=== PATIENT | female | born 1990 | race Caucasian/White ===

== ENCOUNTER 2025-03-31 18:30 | Inpatient (IN) | payer OTHER, SELFPAY ==
[2025-03-31] VITALS (8 sets, daily range): BP systolic 136–154; BP diastolic 76–91; PULSE 88–102; RESP 16–17; TEMP 36.4–36.5; O2SAT 97–98; BMI 41.1; BMI 1939.0; BMI 20251125.0
[2025-03-31 18:53] LABS: Creatinine, Urine (random) 74.80 mg/dL (28.00-217.00); Protein, Urine (Random) 13.1 mg/dL (0.0-12.0); Protein:Creat Ratio 175 mg/g CRE (0-200)
[2025-03-31 18:55] LABS: AST(SGOT) 19 U/L (<=31); Alanine Aminotransfer ALT/SGPT 11 U/L (<=34); Estimated Creatinine Clearance 99.03 ml/min (50-250); Hematocrit 39.2 % (37-47); Hemoglobin 12.5 g/dL (12.0-15.0); Mean Corp Hgb Conc 31.9 g/dL (32-36); Mean Corpuscular Volume 85.6 fL (81-99); Mean Platelet Vol. 12.0 fl (6.2-12.0); Platelet Count 267 K/mm3 (150-450); RBC Distribution Width CV 17.2 % (11.6-14.6); RBC Distribution Width SD 53.5 fl (35.1-43.9); Red Blood Count 4.58 M/mm3 (4.2-5.4); White Blood Count 15.9 K/mm3 (4.4-11.0)
[2025-03-31 19:52] LABS: Syphilis Antibodies Nonreactive (Nonreactive)
[2025-03-31 19:56] LABS: Uric Acid 5.3 mg/dL (2.6-6.0)
[2025-04-01] VITALS (47 sets, daily range): BP systolic 114–162; BP diastolic 55–93; PULSE 73–111; RESP 16–18; TEMP 36.2–37.4; O2SAT 78–100; BMI 1030.0; BMI 20251126.0
[2025-04-01] MEDS: LACTATED RINGERS 500 ML 999 ML IV ×2 (00:27→04:47)
--- NOTE | 2025-04-01 07:47 | PCM.HP.OB ---
HPI - General General Date of Admission: 03/31/25 HPI Narrative CORDELL GREER, is a 34 F who presents for induction of labor for GHTN, GDM, and Obesity. Maternal Data Information IRA Calculator Estimated Delivery Date Method Current WG Current Estimate 04/16/25 Manual 37w 6d PFSH PFS Medical History (Updated 04/01/25 @ 07:50 by Jocelin Rob CNM) Asthma Anxiety Headache Gestational diabetes Pre-eclampsia Home Medications ?Medication ?Instructions ?Recorded ?Last Taken ?Type albuterol 90 mcg-budesonide 80 2 inh inhalation PRN PRN shortness 03/31/25 Unknown History mcg/actuation HFA aerosol inhaler of breath or wheezing (Airsupra) aspirin 81 mg tablet 81 mg PO DAILY 03/31/25 03/31/25 History budesonide 32 mcg/actuation nasal 1 spray intranasal PRN 03/31/25 Unknown History spray cetirizine 10 mg tablet (24Hour 10 mg PO .HS PRN allergy 03/31/25 03/30/25 History Allergy) epinephrine 0.3 mg/0.3 mL 0.3 mg IM PRN PRN anaphylaxis 03/31/25 Unknown History injection, auto-injector (EpiPen) fexofenadine 180 mg tablet 180 mg PO .AM 03/31/25 03/31/25 History (Rehana Allergy) fluticasone 250 mcg-salmeterol 50 1 inh inhalation BID 03/31/25 03/31/25 History mcg/dose blistr powdr for inhalation (Advair Diskus) montelukast 10 mg tablet 10 mg PO .HS allergies 03/31/25 03/30/25 History (Singulair) vit no.95-ferrous 1 tab PO DAILY 03/31/25 03/31/25 History fumarate 28 mg-folic acid 800 mcg tablet () Allergy/AdvReac Type Severity Reaction Status Date / Time peanut Allergy Severe Anaphylaxis Verified 03/31/25 17:36 tree nut Allergy Severe Anaphylaxis Verified 03/31/25 17:36 egg (eggs) Allergy Mild Hives Verified 03/31/25 17:36 shellfish derived Allergy Mild Hives Verified 03/31/25 17:36 Surgical History (Updated 03/31/25 @ 18:54 by Paul Castaneda) History of surgery Social History Smoking Status: Never smoker History Elective abortions Hx Para 0 Spontaneous abortions Hx # Term Pregnancies Ectopic pregnancies Hx # Pregnancies Multiple births # of living children NST FHR Rate Baby A Baseline: 140 Variability:: Moderate Accelerations:: 15 x 15 Decelerations:: None NST Reactive:: Yes FHR Category:: Category I Uterine Activity:: TOCO reading every 2-3 minutes ROS Eyes Eyes: Denies blurry vision, change in vision or spots in vision ENT HEENT: Denies dizziness or headache(s) Cardiovascular Cardiovascular: Denies abdominal pain, chest pain or dyspnea Respiratory/Chest Respiratory/Chest: Denies cough, dyspnea, shortness of breath at rest or shortness of breath with exertion Gastrointestinal Gastrointestinal: Denies abdominal pain, diarrhea or vomiting Genitourinary Genitourinary: Denies change in urinary stream, difficulty urinating or dysuria Musculoskeletal Musculoskeletal: Reports none Integumentary Integumentary: Denies rash Neurologic Neurologic: Denies dizziness, headache(s), memory loss or weakness Psychiatric Psychiatric: Reports none Vital Signs Vital Signs Vital Signs: 03/31/25 17:49 03/31/25 17:52 03/31/25 17:52 Temperature Temperature Source Pulse Rate 100 Respiratory Rate 17 Blood Pressure 137/77 H BP Systolic 137 BP Diastolic 77 Pulse Ox 03/31/25 17:52 03/31/25 17:52 03/31/25 17:52 Temperature 97.7 F L Temperature Source Temporal Pulse Rate Respiratory Rate Blood Pressure BP Systolic BP Diastolic Pulse Ox 97 03/31/25 18:07 03/31/25 18:07 03/31/25 18:22 Temperature Temperature Source Pulse Rate 91 Respiratory Rate Blood Pressure 147/87 H 154/91 H BP Systolic 147 154 BP Diastolic 87 91 Pulse Ox 03/31/25 18:22 03/31/25 18:37 03/31/25 18:37 Temperature Temperature Source Pulse Rate 99 99 Respiratory Rate Blood Pressure 152/79 H BP Systolic 152 BP Diastolic 79 Pulse Ox 03/31/25 18:53 03/31/25 18:53 03/31/25 19:07 Temperature Temperature Source Pulse Rate 95 Respiratory Rate Blood Pressure 139/87 H 136/88 H BP Systolic 139 136 BP Diastolic 87 88 Pulse Ox 03/31/25 19:07 03/31/25 20:14 03/31/25 20:14 Temperature Temperature Source Pulse Rate 102 H 88 Respiratory Rate Blood Pressure 142/76 H BP Systolic 142 BP Diastolic 76 Pulse Ox 03/31/25 20:14 03/31/25 20:14 03/31/25 20:14 Temperature 97.5 F L Temperature Source Pulse Rate 95 Respiratory Rate Blood Pressure BP Systolic BP Diastolic Pulse Ox 98 03/31/25 20:14 04/01/25 00:01 04/01/25 00:01 Temperature 99.0 F Temperature Source Pulse Rate Respiratory Rate 16 Blood Pressure 139/83 H BP Systolic 139 BP Diastolic 83 Pulse Ox 04/01/25 00:01 04/01/25 00:02 04/01/25 00:02 Temperature Temperature Source Pulse Rate 81 84 Respiratory Rate Blood Pressure BP Systolic BP Diastolic Pulse Ox 97 04/01/25 03:53 04/01/25 03:53 04/01/25 03:53 Temperature 99.3 F H Temperature Source Pulse Rate 84 Respiratory Rate Blood Pressure BP Systolic BP Diastolic Pulse Ox 94 04/01/25 03:54 04/01/25 03:54 04/01/25 03:55 Temperature Temperature Source Pulse Rate 73 Respiratory Rate Blood Pressure 142/89 H BP Systolic 142 BP Diastolic 89 Pulse Ox 98 04/01/25 07:22 04/01/25 07:22 04/01/25 07:22 Temperature 98.4 F Temperature Source Pulse Rate 78 Respiratory Rate Blood Pressure 114/55 L BP Systolic 114 BP Diastolic 55 Pulse Ox 04/01/25 07:25 04/01/25 07:25 04/01/25 07:27 Temperature Temperature Source Temporal Pulse Rate Respiratory Rate 16 Blood Pressure BP Systolic BP Diastolic Pulse Ox 97 Weight Weight: 225 lb Body Mass Index (BMI) 41.1 PRE- weight 195 lb PRE- Body Mass Index 35.9 (BMI) Physical Exam Const alert, oriented x3 and no apparent distress General Appearance: cooperative Orientation / Consciousness: awake Exam Limitations: no limitations HEENT normocephalic Head and Scalp: normal to inspection Eyes General Eye: normal appearance of both eyes Neck full ROM and no lymphadenopathy Lymph Lymphatic: no lymphadenopathy noted Chest inspection of chest normal Resp normal respiratory effort, normal air movement and clear to auscultation bilaterally Effort and Inspection: able to speak in complete sentences and symmetric chest movement Cardio regular rate and regular rhythm GI normal to inspection, nondistended, normoactive bowel sounds Manual OB Exam: presentation cephalic Back/Spine normal ROM Extremity full ROM and no calf tenderness Skin no rashes or lesions noted General Skin Exam: no breakdown Neuro oriented x3 and CN's II-XII intact bilaterally Psych mental status grossly normal and thought process normal Labs Labs Labs: Blood Type A NEGATIVE Antibody Screen NEGATIVE Hct, (37-47) 39.2 % Hgb, (12.0-15.0) 12.5 g/dL Syphilis Total Ab, (Nonreactive) Nonreactive GBS NEG Assessment & Plan (1) Encounter for induction of labor: (2) Asthma: (3) Anxiety: (4) Gestational diabetes: (5) Obesity affecting : (6) Rh negative status during : (7) AMA (advanced maternal age) primigravida 35+: (8) Excessive growth affecting management of mother: (9) 37 weeks gestation of : (10) Gestational hypertension: PLAN: Plan Admit to labor and delivery HTN protocol GDM protocol CE 1.5/50/-3 West bulb placed without difficulty and filled with 30 cc N/S AROM for clear fluid during placement of west bulb GBS NEG Epidural when indicated Only received 1 dose of Cytotec due to tachysystole Dr. Ziegler notified and is collaborating physician
[2025-04-01] MEDS: 0.9% Normal Saline Single 100 ML IV.SOLN. INTRA-UTER (08:03)
[2025-04-01] MEDS: 0.9% Saline Lock 10 ML Syringe IV (09:09)
[2025-04-01] MEDS: Lactated Ringers 1,000 ML 999 ML IV (09:10)
[2025-04-01] MEDS: fentaNYL-bupivacaine (epidural) 100 ML BAG EPIDURAL ×3 (09:53→19:04)
[2025-04-01] MEDS: Lactated Ringers 1,000 ML 100 ML IV ×2 (10:12→22:14)
[2025-04-01] MEDS: Fluticasone Propion/Salmeterol 250-50 Inhaler 1 PUFF INHALATION ×2 (11:00→22:43)
[2025-04-01] MEDS: Oxytocin 15 Units/NS 250ml 15 UNITS/250 ML IV.SOLN 2 UNITS IV (11:24)
[2025-04-01] MEDS: Lactated Ringers 1,000 ML 200 ML IV (16:20)
--- NOTE | 2025-04-01 16:43 | PN.OBGYN_ITS ---
Subjective Subjective Patient seen at bedside. Resting comfortable with epidural. Denies any pain. Objective Data Objective Data Vital Signs: Vital Signs Temp Pulse Resp BP Pulse Ox 97.9 F 86 16 124/68 H 100 04/01/25 16:22 04/01/25 16:22 04/01/25 16:22 04/01/25 16:22 04/01/25 15:34 Weight: 225 lb Body Mass Index (BMI) 41.1 Intake & Output: Intake and Output for Last 24 Hours 03/30/25 03/31/25 04/01/25 23:59 23:59 23:59 Intake Total 2981.31 / 2981.31 Output Total 1350 / 1350 Balance 1631.31 / 1631.31 Lab / Micro Data 03/31/25 18:00 03/31/25 18:00 Labs: Laboratory Results - last 24 hr 03/31/25 18:00: WBC 15.9 H, RBC 4.58, Hgb 12.5, Hct 39.2, MCV 85.6, MCH 27.3, M CHC 31.9 L, RDW Std Deviation 53.5 H, RDW Coeff of Wilda 17.2 H, Plt Count 267, MPV 12.0, Creatinine 0.87, Estim Creat Clear Calc 99.03, Est GFR (MDRD) Non-Af 89, Uric Acid 5.3, AST 19, ALT 11, U Random Total Protein 13.1 H, Urine Creatinine 74.80, Protein/Creatinin Ratio 175 03/31/25 18:50: Syphilis Total Ab Nonreactive, Blood Type A NEGATIVE, Antibody Screen NEGATIVE 03/31/25 18:56: POC Glucose 103 03/31/25 20:07: POC Glucose 110 H 03/31/25 23:59: POC Glucose 86 04/01/25 04:09: POC Glucose 84 04/01/25 07:29: POC Glucose 100 04/01/25 11:06: POC Glucose 110 H 04/01/25 14:43: POC Glucose 73 L Assessment & Plan (1) Gestational hypertension: (2) 37 weeks gestation of : (3) Excessive growth affecting management of mother: (4) AMA (advanced maternal age) primigravida 35+: (5) Rh negative status during : (6) Obesity affecting : (7) Asthma: (8) Anxiety: (9) Gestational diabetes: (10) Encounter for induction of labor: PLAN: Plan CE /-2 - very posterior FSE and IUPC placed by nursing Pitocin at 6 mu/min- Cat. 1 tracing currently BP stable- no severe range pressures Dr. Ziegler notified and updated on A&P
--- NOTE | 2025-04-01 20:09 | PCM.PN.CNM ---
Subjective Subjective Seen at bedside. Comfortable with epidural. Sleeping on and off. Objective Data Objective Data Vital Signs: Vital Signs Temp Pulse Resp BP Pulse Ox 98.8 F 95 18 136/75 H 100 04/01/25 20:04 04/01/25 20:04 04/01/25 19:30 04/01/25 20:04 04/01/25 20:04 Weight: 225 lb Body Mass Index (BMI) 41.1 Intake & Output: Intake and Output for Last 24 Hours 03/30/25 03/31/25 04/01/25 23:59 23:59 23:59 Intake Total 3701.31 / 3701.31 Output Total 1350 / 1350 Balance 2351.31 / 2351.31 Lab / Micro Data 03/31/25 18:00 03/31/25 18:00 Labs: Laboratory Results - last 24 hr 03/31/25 18:50: Blood Type A NEGATIVE, Antibody Screen NEGATIVE 03/31/25 20:07: POC Glucose 110 H 03/31/25 23:59: POC Glucose 86 04/01/25 04:09: POC Glucose 84 04/01/25 07:29: POC Glucose 100 04/01/25 11:06: POC Glucose 110 H 04/01/25 14:43: POC Glucose 73 L 04/01/25 18:32: POC Glucose 85 Assessment & Plan (1) Gestational hypertension: (2) 37 weeks gestation of : (3) Excessive growth affecting management of mother: (4) AMA (advanced maternal age) primigravida 35+: (5) Rh negative status during : (6) Obesity affecting : (7) Asthma: (8) Anxiety: (9) Gestational diabetes: (10) Encounter for induction of labor: PLAN: Plan Cat 2 tracing with variables at times CE 6/70/-2 remains posterior- mild caput BP- 162/86 - decreased to 156/71 with retake Pitocin remains at 6 mu/min - Contractions every [address] Ziegler updated on A&P Continue present plan of care
[2025-04-02] VITALS (31 sets, daily range): BP systolic 119–141; BP diastolic 67–97; PULSE 67–99; RESP 16–18; TEMP 36.4–37.6; O2SAT 94–100; BMI 20251127.0; BMI 307.0
[2025-04-02] MEDS: fentaNYL-bupivacaine (epidural) 100 ML BAG EPIDURAL (00:13)
[2025-04-02] MEDS: Azithromycin 500 MG Vial (SNAP) IV (04:09)
[2025-04-02] MEDS: Cefazolin 1 GM/5 ML Vial 2 GM IV (04:09)
[2025-04-02] MEDS: TRANEXAMIC ACID 1,000 MG/10 ML ML 1000 MG IV (04:23)
[2025-04-02] MEDS: morphine PF (epidural) 5 MG/10 ML Vial 4 MG IV (04:28)
[2025-04-02] MEDS: Ketorolac 30 MG/ML Syringe IV ×4 (04:33→22:54)
[2025-04-02] MEDS: Midazolam 2 MG/2 ML Syringe IV (04:36)
--- NOTE | 2025-04-02 05:03 | EX.PCM.OBRPT ---
Maternal Data Information IRA Calculator Estimated Delivery Date Method Current WG Current Estimate 04/16/25 Manual 38w 0d Final IRA: 03/17/25 Gestational age: 38 0/7 CNM who managed labor up until delivery: Jocelin Rob Operative Report (OB) Procedure Details Date of Procedure: 04/02/25 Procedure Start Time: 04:14 Procedure Stop Time: 05:10 Time of Delivery: 04:18 Pre-Operative Diagnosis: Other Other Pre-Operative diagnosis: arrest of descent Post-Operative Diagnosis: Same as Pre-operative diagnosis Classification: SIENNA Type of Anesthesia: Epidural Special Medications: duramorph Antibiotic Given: Ancef 2 grams IV x1 and Zithromax 500 mg/5 mL X1 Drain: Pulido to straight drain Estimated Blood Loss: 800 Fluids Replaced: 800 Findings Description of surgery: I assessed the patient she had been complaining pushing for almost 3 hours. Nursing reported patient had not made significant descent in the last half hour. I assessed the patient and station was plus 2 out of 5 with moderate caput. After another 30 minutes of adequate pushing still plus 2 out of 5 with worsening caput significant labial edema. Her epidural was adequate. I discussed with the patient options of continue to push versus section. I discussed with her that position and station were not adequate for me to recommend a trial of instrumental assisted delivery. Patient and her partner desire to proceed with section. The patient was taken to the operating room. She was prepped and draped in the dorsal supine position. A Pfannenstiel skin incision was made approximately 2 cm above the symphysis pubis and carried through to underlying layer fascia with the scalpel. The fascia was incised incised in the midline and extended laterally with the Salvador scissors. The fascia was dissected off the rectus muscles with blunt and sharp dissection. The rectus muscles were in the midline and the peritoneum was entered [bluntly]. The peritoneal incision was stretched and the bladder blade was placed. The uterine incision was made in a low transverse fashion with the scalpel and extended superiorly and inferiorly with blunt dissection. A red catheter was placed down through the incision into the vagina. Placement hand down under the head and broke the suction easily. The 's head was brought to the incision in the flexed position and delivered without difficulty. The remainder of the was delivered with gentle traction and fundal pressure in the standard fashion. The mouth and nares were bulb suctioned. The cord was clamped and cut as the infant was stimulated. Cord clamping was not delayed as the was crying but not immediately vigorously crying. The infant was handed off to the waiting nursing staff. The placenta was delivered with fundal massage and gentle traction in the standard fashion. The uterus was exteriorized and cleared of all clots and debris. Bilateral cervical extensions of the uterine incision were oversewn with 0 Vicryl suture and were hemostatic. The uterine incision was closed with #1 Vicryl in a running locked fashion. [A second layer of the same suture was used in an imbricating fashion.] The incision was examined and was found to be hemostatic. The uterus was placed back into the peritoneal cavity and hemostasis was again confirmed. Hemoblast was placed over the uterine incision prophylactically. The rectus muscles were examined and any bleeding was Bovie cauterized. [The parietal peritoneum and rectus muscles were closed en bloc with an 0 Vicryl running suture]. The surgical teams outer gloves were then changed. The rectus fascia was examined and any bleeding was Bovie cauterized and the rectus fascia was closed with #1 PDS suture in a running standard fashion. Hemoblast was placed over every layer. The subcutaneous tissue was examining and any bleeding was Bovie cauterized. [The subcutaneous tissue was reapproximated with 3-0 Vicryl suture.] The skin was closed in a subcuticular fashion with Monocryl suture in a subcuticular fashion. I performed the entire procedure with assistance. All sponge, lap, and needle counts were correct. The patient was taken to her room for recovery in a stable condition. Surgical findings: Vigorous male Presentation: Vertex Amniotic Membrane Rupture Type: Artificial Amniotic Fluid Description: Clear Placental Delivery Description: Expressed Placenta Disposition: Sent to Pathology Specimen collected: Yes Description of specimen(s) removed: placenta Cord Vessel Description: 3 Vessels Cord Gases: ABG and VBG A gender: Male (Berthold) (1 minute): 8 (5 minute): 9 Delayed Cord Clamping: No Marketing And Outreach Coordinator marketing and outreach coordinator: Yes Sharepoint Web Developer: Stanella,Medina Tasks completed by first assistant manager: Altering tissue and Retracting Additional automotive parts counter assistant?: No Complications Complications: No Admit VTE Documentation VTE Present on Admission: No VTE Mechan Device Prophylaxis: SCD's VTE Pharm Prophylaxis Ordered: Yes
[2025-04-02] MEDS: Oxytocin 15 Units/NS 250ml 15 UNITS/250 ML IV.SOLN 83 UNITS IV (05:15)
--- NOTE | 2025-04-02 06:15 | PLAC_PTH ---
PATIENT: CORDELL GREER LOC: [facility] U#:[id number] AGE/SX: 34/F ROOM: [facility] RE03/31/[address]: Dr. Lucila Razo, MDDOB: 1990 BED: 1 DIS: 04/05/2025 SPEC #: [id number] RECD: 04/02/25 06:42 STATUS: MARC ORALIA #: [id number] JALEN: 04/02/25 06:[address]: Lucila Razo DEPT: SURGICAL PATHOLOGY RECD BY: Santana Villagomez ENTERED: 04/03/25 10:27 SP TYPE: PLACENTA OTHR DR: Dr. Reji Saenz, II, DO Tissues: A - Placenta, NOS Procedures: Surgery Specimen Level V HEADER OPERATION: Primary section PRE-OP DIAGNOSIS: Gestational hypertension TISSUE SUBMITTED: A- Placenta MICROSCOPIC DIAGNOSIS A. Abrams placenta, 3rd trimester gestation (37 weeks / 6 days), section: - 558.4 grams (50th-75th percentile). - Acute chorioamnionitis. - Three vessel umbilical cord with acute phlebitis and acute funisitis. MICROSCOPIC DESCRIPTION Slides are reviewed. GROSS DESCRIPTION A. Received in formalin labeled with the patient's name and date of is a 558.4 g, 19.1 x 18.4 x 3.4 cm irregular placental disc. The membranes are sood-pink and translucent, inserting marginally. The attached trivascular umbilical cord has multiple false knots and is possibly compressed, measuring 56.1 cm in length by 1.0-2.4 cm in diameter and inserts eccentrically, 4.5 cm from the disc edge. The surface is purple-blue with focal subchorionic fibrin, predominantly near the periphery (<15%). The maternal surface is red-brown with a focally torn and frayed appearance, patchy, loosely adherent blood clot and focal fibrin (<15%); the maternal surface appears near complete. Sectioning reveals red-brown, spongy parenchyma with focal hemorrhage and fibrin (<15%). Metals Analyst sections are submitted as follows: A1: Membrane rollA2: Umbilical cordA3: PlacentaA4: Placenta SC 04/03/2025 CPT:61404
[2025-04-02 06:46] LABS: Pathology Specimen OB SEE PATHOLOGY REPORT
[2025-04-02] MEDS: Senna/Docusate Sodium 1 Tablet PO (08:32)
[2025-04-02] MEDS: Lactated Ringers 1,000 ML 100 ML IV (09:41)
[2025-04-02] MEDS: 0.9% Saline Lock 10 ML Syringe IV ×3 (10:59→22:54)
--- NOTE | 2025-04-02 12:56 | NURSING ---
Delayed due to patient sleeping
[2025-04-03 01:53] VITALS: RESP 16; O2SAT 94
[2025-04-03 04:38] VITALS: BP 146/81; PULSE 89; RESP 16; TEMP 36.6; O2SAT 96
[2025-04-03] MEDS: Ketorolac 30 MG/ML Syringe IV (05:09)
[2025-04-03] MEDS: 0.9% Saline Lock 10 ML Syringe IV (05:09)
[2025-04-03 05:39] LABS: Hematocrit 30.1 % (37-47); Hemoglobin 9.5 g/dL (12.0-15.0); Mean Corp Hgb Conc 31.6 g/dL (32-36); Mean Corpuscular Volume 86.2 fL (81-99); Mean Platelet Vol. 10.4 fl (6.2-12.0); Platelet Count 190 K/mm3 (150-450); RBC Distribution Width CV 17.7 % (11.6-14.6); RBC Distribution Width SD 55.2 fl (35.1-43.9); Red Blood Count 3.49 M/mm3 (4.2-5.4); White Blood Count 18.5 K/mm3 (4.4-11.0)
[2025-04-03 08:24] VITALS: BP 125/81; PULSE 72; RESP 16; TEMP 36.8; O2SAT 95
--- NOTE | 2025-04-03 09:04 | PCM.PN.OB ---
Subjective Subjective Doing well. Ambulating and voiding without difficulty. Mild lochia. Breast feeding. Objective Data Objective Data Vital Signs: Vital Signs Temp Pulse Resp BP Pulse Ox O2 Del Method 98.3 F 72 16 125/81 H 95 Room Air 04/03/25 08:24 04/03/25 08:24 04/03/25 08:24 04/03/25 08:24 04/03/25 08:24 04/03/25 08:24 Oxygen Delivery Method Room Air Weight: 102.058 kg Body Mass Index (BMI) 41.1 Intake & Output: Intake and Output for Last 24 Hours 04/01/25 04/02/25 04/03/25 23:59 23:59 23:59 Intake Total 3931.31 / 3931.31 1846.30 / 1846.30 Output Total 2200 / 2200 2950 / 2950 450 / 450 Balance 1731.31 / 1731.31 -1103.70 / -1103.70 -450 / -450 Lab / Micro Data 04/03/25 05:25 03/31/25 18:00 Labs: Laboratory Results - last 24 hr 04/03/25 05:23: POC Glucose 96 04/03/25 05:25: WBC 18.5 H, RBC 3.49 L, Hgb 9.5 L, Hct 30.1 L, MCV 86.2, MCH 27.2, MCHC 31.6 L, RDW Std Deviation 55.2 H, RDW Coeff of Wilda 17.7 H, Plt Count 190, MPV 10.4 ROS Constitutional Constitutional: Denies headache(s) Cardiovascular Cardiovascular: Denies chest pain or dyspnea Gastrointestinal Gastrointestinal: Denies nausea or vomiting Genitourinary Genitourinary: Denies dysuria Physical Exam Const alert General Appearance: cooperative Eyes PERRL and EOMs intact bilaterally Resp normal respiratory effort GI soft to palpation and non-tender GI Narrative: soft, moderate distention, fundus firm, appropriately tender. Abdominal bandage clean dry and intact Uterus Palpation: uterus fundus firm ( below umbilicus) Extremity normal to inspection and full ROM Neuro oriented x3 and CN's II-XII intact bilaterally Psych mental status grossly normal Assessment & Plan (1) Gestational hypertension: (2) S/P : PLAN: Plan Routine
[2025-04-03] MEDS: Senna/Docusate Sodium 1 Tablet PO (10:08)
[2025-04-03] MEDS: Fluticasone Propion/Salmeterol 250-50 Inhaler 1 PUFF INHALATION (10:08)
[2025-04-03 13:42] VITALS: BP 131/72; PULSE 82; RESP 16; TEMP 36.6; O2SAT 97
[2025-04-03 20:29] VITALS: BP 139/87; PULSE 80; RESP 16; TEMP 36.6; O2SAT 97
[2025-04-04 02:26] VITALS: BP 139/89; PULSE 72; RESP 16; TEMP 37; O2SAT 97
--- NOTE | 2025-04-04 08:35 | PCM.PN.OB ---
Subjective Subjective Doing well. Ambulating and voiding without difficulty. Mild lochia. Breast feeding. Objective Data Objective Data Vital Signs: Vital Signs Temp Pulse Resp BP Pulse Ox O2 Del Method 98.6 F 72 16 139/89 H 97 Room Air 04/04/25 02:26 04/04/25 02:26 04/04/25 02:26 04/04/25 02:26 04/04/25 02:26 04/04/25 02:26 Oxygen Delivery Method Room Air Weight: 102.058 kg Body Mass Index (BMI) 41.1 Intake & Output: Intake and Output for Last 24 Hours 04/02/25 04/03/25 04/04/25 23:59 23:59 23:59 Intake Total 1846.30 / 1846.30 Output Total 2950 / 2950 450 / 450 Balance -1103.70 / -1103.70 -450 / -450 Lab / Micro Data 04/03/25 05:25 03/31/25 18:00 ROS Constitutional Constitutional: Denies headache(s) Cardiovascular Cardiovascular: Denies chest pain or dyspnea Gastrointestinal Gastrointestinal: Denies nausea or vomiting Genitourinary Genitourinary: Denies dysuria Physical Exam Const alert, oriented x3 and no apparent distress General Appearance: cooperative and comfortable Eyes PERRL and EOMs intact bilaterally Resp normal respiratory effort GI soft to palpation and non-tender GI Narrative: soft, moderate distention, fundus firm, appropriately tender. Abdominal bandage clean dry and intact Uterus Palpation: uterus fundus firm ( below umbilicus) Extremity normal to inspection and full ROM Neuro oriented x3 and CN's II-XII intact bilaterally Psych mental status grossly normal Assessment & Plan (1) S/P : (2) Gestational hypertension: QUALIFIERS: Trimester: third trimester Qualified Code(s): O13.3 - Gestational [-induced] hypertension without significant proteinuria, third trimester PLAN: Plan Anticipate discharge tomorrow
[2025-04-04 10:00] VITALS: BP 143/95; PULSE 80; RESP 16; TEMP 36.9; O2SAT 100
[2025-04-04] MEDS: Senna/Docusate Sodium 1 Tablet PO (10:06)
[2025-04-04] MEDS: Fluticasone Propion/Salmeterol 250-50 Inhaler 1 PUFF INHALATION ×2 (10:07→22:12)
[2025-04-04 14:23] VITALS: BP 149/90; PULSE 88; RESP 18; TEMP 37.3; O2SAT 97
[2025-04-04 16:50] VITALS: BP 139/82
[2025-04-04 20:56] VITALS: BP 134/86; PULSE 88; RESP 16; TEMP 36.8; O2SAT 98
[2025-04-05 02:20] VITALS: BP 129/69; PULSE 91; RESP 14; TEMP 36.7; O2SAT 97
--- NOTE | 2025-04-05 08:32 | PCM.PN.OB ---
Subjective Subjective Doing well. Ambulating and voiding without difficulty. Mild lochia. Breast feeding. Objective Data Objective Data Vital Signs: Vital Signs Temp Pulse Resp BP Pulse Ox O2 Del Method 98.0 F 91 14 129/69 H 97 Room Air 04/05/25 02:20 04/05/25 02:20 04/05/25 02:20 04/05/25 02:20 04/05/25 02:20 04/05/25 02:20 Oxygen Delivery Method Room Air Weight: 102.058 kg Body Mass Index (BMI) 41.1 Intake & Output: Intake and Output for Last 24 Hours 04/03/25 04/04/25 04/05/25 23:59 23:59 23:59 Output Total 450 / 450 Balance -450 / -450 Lab / Micro Data 04/03/25 05:25 03/31/25 18:00 ROS Constitutional Constitutional: Denies headache(s) Cardiovascular Cardiovascular: Denies chest pain or dyspnea Gastrointestinal Gastrointestinal: Denies nausea or vomiting Genitourinary Genitourinary: Denies dysuria Physical Exam Const alert General Appearance: cooperative Eyes PERRL and EOMs intact bilaterally Resp normal respiratory effort GI soft to palpation and non-tender GI Narrative: soft, moderate distention, fundus firm, appropriately tender. Abdominal bandage clean dry and intact Uterus Palpation: uterus fundus firm ( below umbilicus) Extremity normal to inspection and full ROM Neuro oriented x3 and CN's II-XII intact bilaterally Psych mental status grossly normal Assessment & Plan (1) S/P : (2) Gestational hypertension: QUALIFIERS: Trimester: third trimester Qualified Code(s): O13.3 - Gestational [-induced] hypertension without significant proteinuria, third trimester (3) AMA (advanced maternal age) primigravida 35+: QUALIFIERS: Trimester: third trimester Qualified Code(s): O09.513 - Supervision of elderly primigravida, third trimester PLAN: Plan Discharge home. BP check in 3 days
--- NOTE | 2025-04-05 08:32 | PCM.DC.SUM ---
Providers Date of Admission: 03/31/25 Date of Discharge: 04/05/25 Primary Care Physician: Dr. Reji Saenz, II, DO Reason For Visit: LABOR Diagnosis Discharge Diagnosis (1) S/P : Status: Acute Code(s): Z98.891 - History of uterine scar from previous surgery (2) Gestational hypertension: Status: Acute Code(s): O13.9 - Gestational [-induced] hypertension without significant proteinuria, unspecified trimester Qualifiers: Trimester: third trimester Qualified Code(s): O13.3 - Gestational [-induced] hypertension without significant proteinuria, third trimester (3) AMA (advanced maternal age) primigravida 35+: Status: Acute Code(s): O09.519 - Supervision of elderly primigravida, unspecified trimester Qualifiers: Trimester: third trimester Qualified Code(s): O09.513 - Supervision of elderly primigravida, third trimester Plan Discharge home. BP check in 3 days Medications at Discharge Home Medications albuterol 90 mcg-budesonide 80 mcg/actuation HFA aerosol inhaler (Airsupra) 2 inh inhalation PRN PRN shortness of breath or wheezing 03/31/25 budesonide 32 mcg/actuation nasal spray 1 spray intranasal PRN 03/31/25 cetirizine 10 mg tablet (24Hour Allergy) 10 mg PO .HS PRN allergy 03/31/25 epinephrine 0.3 mg/0.3 mL injection, auto-injector (EpiPen) 0.3 mg IM PRN PRN anaphylaxis 03/31/25 fexofenadine 180 mg tablet (Rehana Allergy) 180 mg PO .AM 03/31/25 fluticasone 250 mcg-salmeterol 50 mcg/dose blistr powdr for inhalation (Advair Diskus) 1 inh inhalation BID 03/31/25 montelukast 10 mg tablet (Singulair) 10 mg PO .HS allergies 03/31/25 vit no.95-ferrous fumarate 28 mg-folic acid 800 mcg tablet () 1 tab PO DAILY 03/31/25 labetalol 200 mg tablet 200 mg PO BID #60 tabs 04/05/25 oxycodone 5 mg tablet 5 - 10 mg (1 - 2 x 5 mg) PO Q4H PRN PRN Pain Score 4-10 5 days #10 tabs 04/05/25 sennosides 8.6 mg-docusate sodium 50 mg tablet (Stimulant Laxative Plus) 1 - 2 tab PO DAILY #30 tabs 04/05/25 Hospital Course Operations section Procedures None Summary of Care Provided Minutes Spent on Discharge: 20 Hospital Course: Primary . Elevated BP. Labetalol started pp. Breast feeding Physical Exam Const alert General Appearance: cooperative GI GI Narrative: soft, moderate distention, fundus firm, appropriately tender. Abdominal bandage clean dry and intact Weight / BMI Weight Weight: 102.058 kg Body Mass Index (BMI) 41.1 PRE- weight 88.451 kg PRE- Body Mass Index 35.9 (BMI) ABG / Lab / Microbiology Data 04/03/25 05:25 03/31/25 18:00 D/C Instructions DC O2, CPAP, BIPAP Needs Home O2 Discharge instructions: No Meaningful Use Info Meaningful Use Meaningful Use Diagnoses (Choose all that apply): None applicable Discharge Plan Admission Admit Date/Time: 03/31/25 18:30 Primary Reason for Your Visit: induction of labor Attending Provider: Lucila Razo Primary Care Provider: Reji Saenz II Discharge Orders/Prescriptions Prescriptions: New labetalol 200 mg Tablet 200 mg PO BID Qty: 60 1RF sennosides-docusate sodium [Stimulant Laxative Plus] 8.6-50 mg Tablet 1 - 2 tab PO DAILY Qty: 30 1RF oxycodone 5 mg Tablet 5 - 10 mg PO Q4H PRN PRN (Reason: Pain Score 4-10) 5 Days Qty: 10 0RF Continued montelukast [Singulair] 10 mg tablet 10 mg PO .HS fluticasone propion-salmeterol [Advair Diskus] 250-50 mcg/dose blister with device 1 inh inhalation BID epinephrine [EpiPen] 0.3 mg/0.3 mL auto-injector 0.3 mg IM PRN PRN (Reason: anaphylaxis) Rx Instructions: for 2 doses PNV no.95-ferrous fumarate-FA [] 28 mg iron- 800 mcg tablet 1 tab PO DAILY budesonide 32 mcg/actuation spray,non-aerosol 1 spray intranasal PRN Rx Instructions: administer into each nostril cetirizine [24Hour Allergy] 10 mg tablet 10 mg PO .HS PRN (Reason: allergy) fexofenadine [Rehana Allergy] 180 mg tablet 180 mg PO .AM Airsupra 90-80 mcg/actuation HFA aerosol inhaler 2 inh inhalation PRN PRN (Reason: shortness of breath or wheezing) Discontinued aspirin 81 mg tablet 81 mg PO DAILY Referrals / Follow Up: Reji Saenz II, DO [Primary Care Provider, Family Practice] Disposition Disposition (needs filled in before D/C Order can be placed): Home, Self Care
[2025-04-05 08:36] VITALS: BP 132/83; PULSE 65; RESP 16; TEMP 36.6
[2025-04-05] MEDS: Senna/Docusate Sodium 1 Tablet PO (10:02)
--- NOTE | 2025-04-07 11:27 | CASEMGMT ---
Social Work Assessment Labor and Delivery Unit Patient Address: [address] [place] [id number] Phone number: [phone] Date of Referral: 04/02/25 Time of Referral:? 907 Referred By: Dr. Gil Date of Intervention: ?04/03/25? Time of Intervention:? 0 Reason for Referral:? anxiety Sw completed chart review and acknowledges social work consult. Sw presented to bedside and introduced self to mother of baby, KALEB- Zahra, and father of baby, FANNY- Gama. Sw explained reason for sw involvement and completed psychosocial assessment. History obtained from: medical records, MOB and FOB Household composition: Currently residing in the home is MOB, FANNY and baby when ready for discharge. Parents deny any housing concerns, stating that it is safe and secure. Patient's parent/guardian status:? ?KALEB states that she and FANNY have been together for 10 years after being introduced to each other by FANNY's sister. No concerns reported of domestic violence or intimate partner violence. baby is first baby for both parents Medical History: ?KALEB is 34 year old female who is 2, para 0- now 1 following labor and delivery of . KALEB received routine care during with [facility]. KALEB presented to hospital and required emergency due to failure to progress. KALEB delivered baby on 04/02/25 at 37 weeks gestation. Baby boy named Ainsley Sanders who weighed 7lbs 12oz and had apgars of 8 and 9 at one and five minutes of life, respectfully. KALEB is breast feeding and states that baby will be followed by Dr. Chou for pediatric. Educational Status:? Both parents graduated from high school and attended college. KALEB obtained her Master's degree in nursing and FANNY obtained his Bachelor's degree. No problems with reading, learning or comprehension. Financial Status: Both parents are gainfully employed outside of the home. 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 Supplies:?? All necessary baby supplies obtained, including: car seat, safe sleep space, clothes, diapers and wipes. Childcare/Caregiver(s):?KALEB and FANNY will be the primary caregivers to baby along with an arranged home day care provider when both parents have returned to work. Transportation:?? Both parents have their drivers license and reliable means of transportation, no barriers Programs/Agencies Involved: Parent are over income for linkage to community resources that provide financial assistance. ??? Children Services/Legal Issues:???No history of children services, no issues or concerns warranting referral to be made at this time. Behavioral Health Issues: ??Mental Health History: FOLizbeth states that he has never been diagnosed with any mental health diagnoses, however he does admit to having bouts of nervousness from time to time regarding normal and natural life things. KALEB states that she has been diagnosed with anxiety and is connected to mental health resources at [facility]. 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 KALEB states that she meets with her counselor regularly, and has future appointments scheduled. KALEB is not prescribed medications to help her, as she does not want to use medication, however if necessary during this period, she may consider it. ??? Substance Use History:?Parents deny substance use prior to and during . ? Family History:?Parents deny family history of addiction or significant mental health history. ? Drug Screens: ?No drug screens observed while completing chart review ? Family/Social Stressors:?MOB denies any issues, stressors or concerns. Support Systems: AKLEB states that FANNY, her mom, paternal grandma and KALEB's best friend are her biggest supports at this time. Depression/Shaken Baby/Safe Sleeping:? Lety educated MOB and FOB on signs and symptoms of baby blues and mood and anxiety disorders to be mindful of during this period. MOB states that she is mindful of what to be on the lookout for, and this is something that she has been discussing with her counselor. MOB states that she has also been reviewing coping skills with her therapist. FOB states that it has been helpful to have this conversation with lety. FOB states that given the miscarriage, he is extremely thankful to have baby here and that baby and MOB are both healthy. MOB appropriately tearful throughout conversation, stating that she is worried about mental health going into this year, but knows that she has a lot of supports and coping skills to utilize. Lety expressed importance of safe sleep inside and outside of the bedroom. Lety educated MOB on always placing baby in bedside bassinet and not sleeping with baby in bed with her. Sw explained that baby's bassinet should be free of any blankets, pillows or stuffed animals. And baby should be sleeping in a onsie and a sleep sack/ swaddle sack for sleep. MOB expressed understanding. Sw discouraged sleeping with baby on a couch or in a reclining chair explaining that sleep accidents also happen in those areas as well. Sw educated MOB on shaken baby prevention. MOB expressed understanding. ASSESSMENT:? MOB and baby admitted following labor and delivery of . MOB with mental health history of anxiety, and is connected to mental health supports. 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 MOB also has experienced several nursing experiences that have caused her PTSD, and she states that these experiences will make her a protective mother. MOB states that it took them a long time to become parents, and she is nervous that something will happen to baby. Sw provided support and encouragement, and lots of education. FOB states that he knows how to help and support MOB. While meeting with parents they were engaging in conversation, and conversation flowed easily and naturally. MOB was laying in bed and feeding baby. FOB sitting on couch and participated in conversation and was attentive to MOB and baby. MOB and FOB both looked at baby lovingly and provided appropriate and loving hands on care. Parents have natural supports and have obtained all necessary baby supplies. PLAN:? No other services requested or indicated. MOB and baby to be discharged when medically ready. Parents were provided literature regarding: signs and symptoms of baby blues and mood and anxiety disorders, Help Me Grow, shaken baby prevention, ABCs of safe sleep and a list of county resources that are available for them should any needs present themselves. Kolby Guzman, [employer], [employer]
== END 2025-04-05 11:10 | disposition home or self-care (01) | DRG 788 ==
LOC: WPOUT 18:35 → WP 18:38
PROVIDERS: Advanced Practice Midwife; Obstetrics & Gynecology; Admitting Provider Obstetrics & Gynecology; PCP Family Medicine; Referring Provider Obstetrics & Gynecology; Visit Provider Obstetrics & Gynecology
DX: O13.4 Gestational [pregnancy-induced] hypertension without significant proteinuria, complicating childbirth (principal); O99.214 Obesity complicating childbirth; F41.9 Anxiety disorder, unspecified; J45.909 Unspecified asthma, uncomplicated; O24.420 Gestational diabetes mellitus in childbirth, diet controlled; O99.52 Diseases of the respiratory system complicating childbirth; Z37.0 Single live birth; O99.344 Other mental disorders complicating childbirth; O26.893 Other specified pregnancy related conditions, third trimester; O36.63X0 Maternal care for excessive fetal growth, third trimester, not applicable or unspecified; O32.4XX0 Maternal care for high head at term, not applicable or unspecified; Z67.11 Type A blood, Rh negative; Z3A.37 37 weeks gestation of pregnancy; Z79.51 Long term (current) use of inhaled steroids
CPT/HCPCS: 59025; 59050; 82565; 82570; 82962; 84156; 84450; 84460; 84550; 85027; 86780; 86850; 86900; 86901; 88307; 99221; A4216; G0378; J2405